=== PATIENT | female | born 1955 | race Caucasian/White ===

== ENCOUNTER 2017-04-20 20:39 | Inpatient (IN) | payer OTHER ==
[~2017-04-20] VITALS: Ht 165.1 cm; Wt 54.0 kg
[~2017-04-20 20:39] MED LIST: AMBI12.5 PO; ATRO0.06; CYMB30CA PO; DICL50 PO; HYDR-3535 PO; OMEP20TA PO; PREG300 PO; SPIR25TA PO; TIZA4CAP PO; VALI10TA PO
[2017-04-20 21:04] VITALS: BP 110/67; PULSE 88; RESP 17; TEMP 98.1; O2SAT 97
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
[2017-04-20] MEDS ORDERED: OMEP20TA PO (21:17)
[2017-04-20] MEDS ORDERED: DICL1CAP4 PO (21:17)
[2017-04-20] MEDS ORDERED: AMBI10TA PO (21:17)
[2017-04-20] MEDS ORDERED: SPIR100T PO (21:17)
[2017-04-20] MEDS ORDERED: CYMB30CA PO (21:17)
[2017-04-20] MEDS ORDERED: PREG300 PO (21:17)
[2017-04-20] MEDS ORDERED: DIAZ10 PO (21:17)
[2017-04-20] MEDS ORDERED: HYDR-3516 PO (21:17)
[2017-04-20] MEDS ORDERED: IPRA0.06 EACH NARE (21:17)
[2017-04-20] MEDS ORDERED: LORazepam 2 MG/ML VIAL IM ONE (21:45)
[2017-04-20 22:37] LABS: AUTOMATED NEUTROPHIL # 4.7 TH/MM3 (1.8-7.7); BASOPHIL # 0.1 TH/MM3 (0-0.2); BASOPHIL % 0.9 % (0.0-2.0); EOSINOPHIL # 0.1 TH/MM3 (0-0.4); HEMATOCRIT 42.9 % (35.0-46.0); HEMO FLAGS DIFF FINAL; LYMPH % 23.5 % (9.0-44.0); LYMPHOCYTE # 1.6 TH/MM3 (1.0-4.8); MEAN CELL VOLUME 91.5 FL (80.0-100.0); MEAN CORPUSCULAR HGB CONC 32.8 % (32.0-36.0); MONO % 6.1 % (0.0-8.0); NEUT % 68.5 % (16.0-70.0); PLATELET COUNT 266 TH/MM3 (150-450); RED BLOOD COUNT 4.69 MIL/MM3 (4.00-5.30); WHITE BLOOD COUNT 6.9 TH/MM3 (4.0-11.0)
[2017-04-20 22:42] LABS: BLOOD, URINE NEG (NEG); GLUCOSE,URINE NEG (NEG); KETONE, URINE NEG (NEG); MUCUS URINE FEW /lpf (OCC); NITRITE,URINE NEG (NEG); URINE COLOR COLORLESS (YELLW/STRAW)
[2017-04-20 22:43] LABS: COMMENT (UR) CULT NOT INDICATED; CULTURE IF INDICATED CULT NOT INDICATED
[2017-04-20 22:54] LABS: BICARBONATE 25.4 MEQ/L (21.0-32.0); POTASSIUM 4.2 MEQ/L (3.5-5.1)
[2017-04-20] MEDS ORDERED: diphenhydrAMINE HCL 25 MG CAP PO ONE (23:45)
[2017-04-21] MEDS ORDERED: diphenhydrAMINE HCL 50 MG/ML VIAL IM ONE (00:15)
[2017-04-21 05:43] VITALS: BP 126/72; PULSE 83; RESP 16; TEMP 98.4; O2SAT 98
[2017-04-21 12:15] VITALS: BP 127/64; PULSE 75; RESP 16; TEMP 98
[2017-04-21] MEDS ORDERED: FLUMAZENIL 0.5 MG/5 ML VIAL IV PUSH PRN (12:15)
[2017-04-21] MEDS ORDERED: LORazepam 2 MG/ML VIAL IV PUSH PRN ×4 (12:15)
[2017-04-21] MEDS ORDERED: LORazepam 2 MG TAB PO PRN (12:15)
[2017-04-21] MEDS ORDERED: LORazepam 1 MG TAB PO PRN (12:15)
[2017-04-21 12:37] VITALS: BP 127/64; PULSE 75; RESP 16; TEMP 98.4; O2SAT 98
[2017-04-21] MEDS ORDERED: ALUMINUM/MAGNESIUM/SIMETH 30 ML CUP PO PRN (12:45)
[2017-04-21] MEDS ORDERED: ACETAMINOPHEN 325 MG TAB PO PRN (12:45)
[2017-04-21] MEDS ORDERED: MAGNESIUM HYDROXIDE SUSP 30 ML CUP PO PRN (12:45)
[2017-04-21] MEDS: NICOTINE 21 MG/24 HR PATCH T-DERMAL SCH (13:00)
[2017-04-21 16:15] VITALS: BP 124/37; PULSE 70; RESP 15; TEMP 98.2; O2SAT 98
[2017-04-21] MEDS ORDERED: REMOVE OLD NICOTINE PATCH T-DERMAL SCH (21:00)
[2017-04-22 04:27] VITALS: BP 128/73; PULSE 66; RESP 17; TEMP 97.7; O2SAT 96
[2017-04-22] MEDS: NICOTINE 21 MG/24 HR PATCH T-DERMAL SCH (09:00)
[2017-04-22] MEDS ORDERED: PNEUMOCOCCAL POLYVALENT INJ 25 MCG/0.5 ML SYR IM ONE (10:00)
[2017-04-22 11:54] LABS: ANION GAP 5 MEQ/L (5-15); BICARBONATE 28.6 MEQ/L (21.0-32.0); BLOOD UREA NITROGEN 16 MG/DL (7-18); CHLORIDE 106 MEQ/L (98-107); GLOMERULAR FILTRATION RATE 76 ML/MIN (>89); HDL CHOLESTEROL 81.9 MG/DL (40.0-60.0); LDL CHOLESTEROL 70 MG/DL (0-99); POTASSIUM 3.8 MEQ/L (3.5-5.1); SODIUM (NA) 140 MEQ/L (136-145)
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
[2017-04-22] MEDS ORDERED: FOLI1TAB6 PO (12:58)
[2017-04-22] MEDS ORDERED: VITA100T54 PO (12:58)
[2017-04-22 13:42] LABS: HEMOGLOBIN A1a 0.9 %; HEMOGLOBIN A1b 0.8 %; HEMOGLOBIN Ao 84.4 %; HEMOGLOBIN F 1.1 %; HEMOGLOBIN LA1C 2.2 %; HEMOGLOBIN P3 3.8 %
--- NOTE | 2017-04-22 14:17 | EKG ---
Date Performed: 04/21/2017 Time Performed: 11:21:04 PTAGE: 62 years EKG: Sinus rhythm NORMAL ECG Compared to prior tracing no significant change PREVIOUS TRACING : 05/13/2014 15.53 DOCTOR: Rob Martini Interpretating Date/Time 04/22/2017 14:15:59
--- NOTE | 2017-04-22 14:17 | EKG ---
Date Performed: 04/22/2017 Time Performed: 10:00:37 PTAGE: 62 years EKG: Sinus rhythm POSSIBLE RIGHT VENTRICULAR CONDUCTION DELAY BORDERLINE ECG Compared to prior tracing no significant change PREVIOUS TRACING : 04/21/2017 11.21 DOCTOR: Rob Martini Interpretating Date/Time 04/22/2017 14:15:50
== END 2017-04-22 16:00 | disposition home or self-care (01) | DRG 882 ==
LOC: NEPD 20:39 → NEDA 04-21 11:17 → H260 04-21 11:48
PROVIDERS: ADMIT Psychiatry & Neurology Psychiatry; ATTEND Psychiatry & Neurology Psychiatry
DX: F43.25 Adjustment disorder with mixed disturbance of emotions and conduct (principal); F10.120 Alcohol abuse with intoxication, uncomplicated; Y90.7 Blood alcohol level of 200-239 mg/100 ml; Z72.0 Tobacco use; M19.90 Unspecified osteoarthritis, unspecified site; Z85.828 Personal history of other malignant neoplasm of skin
CPT/HCPCS: 80048; 80061; 80307; 81001; 82306; 82607; 83036; 84443; 85025; 93005; 96372; J1200; J2060